=== PATIENT | female | born 1980 | race African-American/Black ===

== ENCOUNTER → 2018-01-17 | Outpatient (CLI) | payer BC ==
[~2018-01-17] MED LIST: LEXISCAN IV ONE
== END ==
LOC: RAD 12:59
PROVIDERS: ATTEND Internal Medicine Cardiovascular Disease
DX: I25.10 Atherosclerotic heart disease of native coronary artery without angina pectoris (principal)
CPT/HCPCS: 78452; 93017; A4222; A9502; J2785